=== PATIENT | female | born 1955 | race Caucasian/White ===

== ENCOUNTER → 2017-10-25 07:54 | Outpatient (CLI) | payer OTHER, SELFPAY ==
--- NOTE | 2017-10-25 | DI.MG.S_ITS ---
BILATERAL DIGITAL SCREENING MAMMOGRAM 3D/2D WITH CAD: 10/25/2017 CLINICAL: Routine screening. Comparison is made to exams dated: 07/18/2016 mammogram, 05/18/2015 mammogram, and 10/23/2013 mammogram - [facility]. The tissue of both breasts is heterogeneously dense. This may lower the sensitivity of mammography. Current study was also evaluated with a Computer Aided Detection (CAD) system. No significant masses, calcifications, or other findings are seen in either breast. There has been no significant interval change. IMPRESSION: NEGATIVE There is no mammographic evidence of malignancy. A 1 year screening mammogram is recommended. This exam was interpreted at Station ID: [id number]. NOTE: For mammograms, a report in lay terms will be sent to the patient. Approximately 15% of breast malignancies will not be visualized mammographically. In the management of a palpable breast mass, a negative mammogram must not discourage biopsy of a clinically suspicious lesion. Electronically Signed By: Syed henson/meena:10/25/2017 20:35:53 letter sent: Normal Exam ACR BI-RADS Category 1: Negative 3341F
== END ==
DX: Z12.31 Encounter for screening mammogram for malignant neoplasm of breast (principal)
CPT/HCPCS: 77063; 77067

== ENCOUNTER → 2018-11-13 16:40 | Outpatient (CLI) | payer OTHER, SELFPAY ==
--- NOTE | 2018-11-13 16:41 | DI.MG.S_ITS ---
BILATERAL DIGITAL SCREENING MAMMOGRAM 3D/2D WITH CAD: 11/13/2018 CLINICAL: Routine screening. Comparison is made to exams dated: 10/25/2017 mammogram, 07/18/2016 mammogram, and 05/18/2015 mammogram - [facility]. The tissue of both breasts is heterogeneously dense. This may lower the sensitivity of mammography. Current study was also evaluated with a Computer Aided Detection (CAD) system. There is an asymmetry in the left breast middle depth inferior region seen on the mediolateral oblique view only. There is possible architectural distortion associated with the asymmetry. No other significant masses, calcifications, or other findings are seen in either breast. IMPRESSION: INCOMPLETE: NEEDS ADDITIONAL IMAGING EVALUATION The asymmetry in the left breast is indeterminate. Additional views with possible ultrasound are recommended. This exam was interpreted at Station ID: [id number]. NOTE: For mammograms, a report in lay terms will be sent to the patient. Approximately 15% of breast malignancies will not be visualized mammographically. In the management of a palpable breast mass, a negative mammogram must not discourage biopsy of a clinically suspicious lesion. Electronically Signed By: Syed Mckeon M.D. ecl/:11/13/2018 21:42:49 letter sent: Additional Imaging Needed ACR BI-RADS Category 0: Incomplete 3340F
== END ==
DX: Z12.31 Encounter for screening mammogram for malignant neoplasm of breast (principal)
CPT/HCPCS: 77063; 77067

== ENCOUNTER → 2018-11-16 08:14 | Outpatient (CLI) | payer OTHER, SELFPAY ==
[2018-11-16 09:54] LABS: Cholesterol 212 mg/dL (140-199); HDL Cholesterol 89 mg/dL (40-60); LDL Cholesterol Calculated 112 mg/dL (<100); Triglycerides 53 mg/dL (35-150)
[2018-11-16 10:26] LABS: Cancer Antigen 125 8 U/mL (0-35)
== END ==
DX: Z00.00 Encounter for general adult medical examination without abnormal findings (principal); N85.2 Hypertrophy of uterus; Z79.890 Hormone replacement therapy
CPT/HCPCS: 36415; 80061; 86304

== ENCOUNTER → 2018-12-06 08:40 | Outpatient (CLI) | payer OTHER, SELFPAY ==
--- NOTE | 2018-12-06 08:43 | DI.MG.S_ITS ---
UNILATERAL LEFT DIGITAL DIAGNOSTIC MAMMOGRAM 3D/2D WITH ADDITIONAL VIEWS: 12/06/2018 CLINICAL: Additional evaluation requested from prior study. Comparison is made to exams dated: 11/13/2018 mammogram, 10/25/2017 mammogram, 07/18/2016 mammogram, 05/18/2015 mammogram, 10/23/2013 mammogram, and 09/06/2012 mammogram - [facility]. The tissue of left breast is heterogeneously dense. This may lower the sensitivity of mammography. Previously noted asymmetry in the left breast middle depth inferior region seen on the mediolateral oblique view only on comparison screening mammogram of 11/13/18 resolves with additional views with only benign-appeariung fibroglandular tissue identified in the area of concern on spot compression views. No architectural distortion is identified in the area of concern on spot compression and tomosynthesis views. IMPRESSION: NEGATIVE No mammographic evidence of malignancy in the imaged areas of the inferior left breast. Return to annual screening mammography schedule recommended. These results and recommendations were discussed with the patient in person at the time of the exam by Dr. Mckeon. The patient was advised to monitor her breasts and to return sooner for reevaluation if she feels anything grow or change in her breasts. This exam was interpreted at Station ID: [id number]. NOTE: For mammograms, a report in lay terms will be sent to the patient. Approximately 15% of breast malignancies will not be visualized mammographically. In the management of a palpable breast mass, a negative mammogram must not discourage biopsy of a clinically suspicious lesion. Electronically Signed By: Syed Mckeon M.D. ecl/:12/06/2018 09:30:36 letter sent: Normal Exam ACR BI-RADS Category 1: Negative 3341F
== END ==
DX: R92.8 Other abnormal and inconclusive findings on diagnostic imaging of breast (principal); N64.89 Other specified disorders of breast
CPT/HCPCS: 77065; G0279

== ENCOUNTER → 2020-06-22 16:48 | Outpatient (CLI) | payer OTHER, SELFPAY ==
--- NOTE | 2020-06-22 16:52 | DI.MG.S_ITS ---
BILATERAL DIGITAL SCREENING MAMMOGRAM 3D/2D WITH CAD: 06/22/2020 CLINICAL: Routine screening. Comparison is made to exams dated: 12/06/2018 mammogram, 11/13/2018 mammogram, 10/25/2017 mammogram, and 07/18/2016 mammogram - [facility]. The tissue of both breasts is heterogeneously dense. This may lower the sensitivity of mammography. Current study was also evaluated with a Computer Aided Detection (CAD) system. No significant masses, calcifications, or other findings are seen in either breast. There has been no significant interval change. IMPRESSION: NEGATIVE There is no mammographic evidence of malignancy. A 1 year screening mammogram is recommended. This exam was interpreted at Station ID: [id number]. NOTE: For mammograms, a report in lay terms will be sent to the patient. Approximately 15% of breast malignancies will not be visualized mammographically. In the management of a palpable breast mass, a negative mammogram must not discourage biopsy of a clinically suspicious lesion. Electronically Signed By: Adithya devlin/meena:06/23/2020 08:03:42 letter sent: Normal Exam ACR BI-RADS Category 1: Negative 3341F
== END ==
PROVIDERS: PCP Internal Medicine; Referring Provider Student in an Organized Health Care Education/Training Program; Visit Provider Student in an Organized Health Care Education/Training Program
DX: Z12.31 Encounter for screening mammogram for malignant neoplasm of breast (principal)
CPT/HCPCS: 77063; 77067

== ENCOUNTER → 2021-11-17 09:37 | Outpatient (CLI) | payer OTHER, SELFPAY | PROVIDERS: PCP Family Medicine; Referring Provider Family Medicine; Visit Provider Family Medicine | DX: Z13.820 Encounter for screening for osteoporosis (principal); Z78.0 Asymptomatic menopausal state; Z92.23 Personal history of estrogen therapy | CPT/HCPCS: 77080 ==

== ENCOUNTER → 2022-01-20 08:02 | Outpatient (CLI) | payer OTHER, SELFPAY ==
--- NOTE | 2022-01-20 08:05 | DI.RAD.S_ITS ---
PROCEDURE: XR HIP W PEL IF DONE LT 2V INDICATIONS: left hip and low back pain TECHNIQUE: AP pelvis with lateral view(s) of the left hip(s). COMPARISON: [facility], [place]NA, XR PELVIS WITH BILATERAL LATERAL HIPS, 12/09/2019, 9:12. FINDINGS: Bones: No fractures or dislocations. Pelvic ring appears intact. No suspicious bony lesions. Dfku-tb-bwwdlral hip and sacroiliac joint degeneration. Soft tissues: The visualized bowel gas pattern is normal. No suspicious soft tissue calcifications. IMPRESSION: Rzfr-qr-qjpveqku degenerative joint disease. Dictated by: Jie Guadalupe M.D. on 01/20/2022 at 11:32 Approved by: Jie Guadalupe M.D. on 01/20/2022 at 11:34
--- NOTE | 2022-01-20 08:05 | DI.RAD.S_ITS ---
PROCEDURE: XR LUMBAR SPINE 2-3V INDICATIONS: left hip and low back pain TECHNIQUE: 3 views of the lumbar spine were acquired. COMPARISON: None. FINDINGS: Bones: 5 [id number]-bkzbxkw vertebrae are present. There is normal bony alignment. No vertebral body compression fractures. No suspicious bony lesions. Mild degenerative disc at L2-L3, L4-L5 and L5-S1 and mild facet disease at L4-L5 and L5-S1. Soft tissues: Overlying bowel gas pattern is normal. No suspicious soft tissue calcifications. IMPRESSION: Mild degenerative disc and facet disease in lumbar spine. Dictated by: Jie Guadalupe M.D. on 01/20/2022 at 14:25 Approved by: Jie Guadalupe M.D. on 01/20/2022 at 14:26
[2022-01-20 08:43] LABS: Add Manual Diff / Slide Review NO; Basophils Absolute Auto 0 /uL (0-100); Basophils Percent Auto 0.4 % (0-2); Eosinophils Absolute Auto 100 /uL (0-450); Eosinophils Percent Auto 1.3 % (2-4); Hematocrit 39.8 % (36-46); Hemoglobin 13.7 g/dL (12.0-16.0); Lymphocytes Absolute Auto 3100 /uL (1100-4500); Lymphocytes Percent Auto 42.1 % (25-40); Mean Corpuscular HGB Conc 34.4 % (30-36); Mean Corpuscular Hemoglobin 31.6 PG (26-34); Mean Corpuscular Volume 91.7 fL (80-100); Monocytes Absolute Auto 700 /uL (0-900); Neutrophils Absolute Auto 3400 /uL (1500-7000); Neutrophils Percent Auto 47.2 % (50-75); Platelet Count 269 X10^3/uL (150-400); Red Blood Cell Count 4.34 X10^6/uL (4.0-5.2); Red Cell Distribution Width 12.7 % (11.6-14.8); White Blood Cell Count 7.3 X10^3/uL (4.5-11.0)
[2022-01-20 09:23] LABS: Creatinine Urine Random 298.8 mg/dL
[2022-01-20 09:24] LABS: Microalbumin Urine Random 1.5 mg/dL (0-1.6)
[2022-01-20 09:25] LABS: Alanine Aminotransferase 11 IU/L (<35); Albumin 4.1 g/dL (3.5-5.0); Albumin Globulin Ratio 1.5 (1.0-2.8); Alkaline Phosphatase 51 U/L (38-126); Aspartate Aminotransferase 25 IU/L (14-36); BUN Creatinine Ratio 16.5 (6-22); Bilirubin Total 0.6 mg/dL (0.2-1.3); Blood Urea Nitrogen 13 mg/dL (7-17); Calcium 8.8 mg/dL (8.4-10.2); Carbon Dioxide 31 mmol/L (22-32); Chloride 103 mmol/L (98-107); Cholesterol 174 mg/dL (140-199); Estimated Glomerular Filt Rate > 60 mL/min (>60); Globulin 2.7 g/dL (1.7-4.1); Glucose 95 mg/dL (80-110); HDL Cholesterol 53 mg/dL (40-60); HEMOLYSIS < 15 (0-50); LDL Cholesterol Calculated 109 mg/dL (<100); Potassium 3.8 mmol/L (3.4-5.1); Sodium 139 mmol/L (137-145); Total Protein 6.8 g/dL (6.3-8.2); Triglycerides 59 mg/dL (35-150)
[2022-01-20 09:49] LABS: TSH w/ Reflex to FT4 2.04 uIU/mL (0.47-4.68)
== END ==
LOC: LAB 08:03 → RAD 08:04
PROVIDERS: PCP Family Medicine; Referring Provider Family Medicine; Visit Provider Family Medicine
DX: M16.0 Bilateral primary osteoarthritis of hip (principal); M46.1 Sacroiliitis, not elsewhere classified; M51.16 Intervertebral disc disorders with radiculopathy, lumbar region; M51.17 Intervertebral disc disorders with radiculopathy, lumbosacral region; E78.00 Pure hypercholesterolemia, unspecified; R00.0 Tachycardia, unspecified; Z12.11 Encounter for screening for malignant neoplasm of colon
CPT/HCPCS: 36415; 72100; 73502; 80053; 80061; 82043; 82570; 84443; 85025

== ENCOUNTER → 2022-01-20 09:09 | Outpatient (CLI) | payer OTHER, SELFPAY ==
--- NOTE | 2022-01-20 | DI.MG.S_ITS ---
BILATERAL DIGITAL SCREENING MAMMOGRAM 3D/2D WITH CAD: 01/20/2022 CLINICAL: Routine screening. Family history of breast cancer. Comparison is made to exams dated: 06/22/2020 mammogram, 11/13/2018 mammogram, and 10/25/2017 mammogram - [facility]. Both breasts are heterogeneously dense, which may obscure small masses (category c / 51-75% glandular tissue). Current study was also evaluated with a Computer Aided Detection (CAD) system. No significant masses, calcifications, or other findings are seen in either breast. There has been no significant interval change. IMPRESSION: NEGATIVE There is no mammographic evidence of malignancy. A 1 year screening mammogram is recommended. This exam was interpreted at Station ID: [id number]. NOTE: For mammograms, a report in lay terms will be sent to the patient. Approximately 15% of breast malignancies will not be visualized mammographically. In the management of a palpable breast mass, a negative mammogram must not discourage biopsy of a clinically suspicious lesion. Electronically Signed By: Meghan esteves/meena:01/20/2022 12:00:33 letter sent: Normal Exam ACR BI-RADS Category 1: Negative 3341F
== END ==
PROVIDERS: PCP Family Medicine; Referring Provider Family Medicine; Visit Provider Family Medicine
DX: Z12.31 Encounter for screening mammogram for malignant neoplasm of breast (principal); Z80.3 Family history of malignant neoplasm of breast; Z12.11 Encounter for screening for malignant neoplasm of colon; M16.0 Bilateral primary osteoarthritis of hip; M46.1 Sacroiliitis, not elsewhere classified; M51.16 Intervertebral disc disorders with radiculopathy, lumbar region; M51.17 Intervertebral disc disorders with radiculopathy, lumbosacral region; E78.00 Pure hypercholesterolemia, unspecified; R00.0 Tachycardia, unspecified
CPT/HCPCS: 36415; 72100; 73502; 77063; 77067; 80053; 80061; 82043; 82570; 84443; 85025

== ENCOUNTER → 2023-08-04 09:42 | Outpatient (CLI) | payer OTHER, SELFPAY ==
--- NOTE | 2023-08-04 09:44 | DI.MG.S_ITS ---
BILATERAL DIGITAL SCREENING MAMMOGRAM 3D/2D WITH CAD: 08/04/2023 CLINICAL: Routine screening. Family history of breast cancer. Comparison is made to exams dated: 01/20/2022 mammogram, 06/22/2020 mammogram, and 11/13/2018 mammogram - [facility]. Both breasts are heterogeneously dense, which may obscure small masses (category c / 51-75% glandular tissue). Current study was also evaluated with a Computer Aided Detection (CAD) system. There is a possible new 0.7 cm oval focal asymmetry in the left breast central to the nipple middle depth. No other significant masses, calcifications, or other findings are seen in either breast. IMPRESSION: INCOMPLETE: NEEDS ADDITIONAL IMAGING EVALUATION The possible new 0.7 cm oval focal asymmetry in the left breast is indeterminate. Additional views with possible ultrasound are recommended. Based on the Tyrer Cuzick model (a risk assessment model) the patient's lifetime risk is 16.9% and her 10 year risk is 9.1%. According to the ACR, ACS, and NCCN guidelines, an annual breast MRI exam along with mammogram is recommended if the patient's lifetime risk is 20% or greater. This exam was interpreted at Station ID: [id number]. NOTE: For mammograms, a report in lay terms will be sent to the patient. Approximately 15% of breast malignancies will not be visualized mammographically. In the management of a palpable breast mass, a negative mammogram must not discourage biopsy of a clinically suspicious lesion. Electronically Signed By: Adithya devlin/meena:08/06/2023 07:50:02 letter sent: Additional Imaging Needed ACR BI-RADS Category 0: Incomplete 3340F
== END ==
PROVIDERS: PCP Family Medicine; Referring Provider Family Medicine; Visit Provider Family Medicine
DX: Z12.31 Encounter for screening mammogram for malignant neoplasm of breast (principal); Z80.3 Family history of malignant neoplasm of breast; R92.333 Mammographic heterogeneous density, bilateral breasts
CPT/HCPCS: 77063; 77067

== ENCOUNTER → 2023-08-24 08:00 | Outpatient (CLI) | payer OTHER, SELFPAY ==
--- NOTE | 2023-08-24 08:01 | DI.MG.S_ITS ---
UNILATERAL LEFT DIGITAL DIAGNOSTIC MAMMOGRAM 3D/2D WITH ADDITIONAL VIEWS: 08/24/2023 CLINICAL: Additional evaluation requested from prior study. Comparison is made to exams dated: 08/04/2023 mammogram, 06/22/2020 mammogram, and 01/20/2022 mammogram - [facility]. The left breast is heterogeneously dense, which may obscure small masses (category c / 51-75% glandular tissue). There is a 0.7 cm oval focal asymmetry in the left breast at 1 o'clock anterior depth. This is seen in additional views. No other significant masses or calcifications are seen in the breast. IMPRESSION: INCOMPLETE: NEEDS ADDITIONAL IMAGING EVALUATION The 0.7 cm oval focal asymmetry in the left breast is indeterminate. An ultrasound is recommended. Based on the Tyrer Cuzick model (a risk assessment model) the patient's lifetime risk is 16.9% and her 10 year risk is 9.1%. According to the ACR, ACS, and NCCN guidelines, an annual breast MRI exam along with mammogram is recommended if the patient's lifetime risk is 20% or greater. This exam was interpreted at Station ID: [id number]. NOTE: For mammograms, a report in lay terms will be sent to the patient. Approximately 15% of breast malignancies will not be visualized mammographically. In the management of a palpable breast mass, a negative mammogram must not discourage biopsy of a clinically suspicious lesion. Electronically Signed By: Shankar redd/meena:08/24/2023 10:00:05 ACR BI-RADS Category 0: Incomplete 3340F
--- NOTE | 2023-08-24 08:01 | DI.US.S_ITS ---
LIMITED ULTRASOUND OF LEFT BREAST: 08/24/2023 CLINICAL: Patient returns today to evaluate a focal asymmetry in the left breast. Comparison is made to exams dated: 08/24/2023 mammogram, 08/04/2023 mammogram, 01/20/2022 mammogram, 06/22/2020 mammogram, 12/06/2018 mammogram, and 11/13/2018 mammogram - [facility]. Color flow and real-time ultrasound of the left breast 1 o'clock, 11 o'clock, and retroareolar regions were performed. Edwards scale images of the real-time examination were reviewed. There is a benign 0.7 cm x 0.8 cm x 0.3 cm micro cyst in the left breast at 1 o'clock middle depth. Other simple benign cysts are seen within 3cm of the nipple on ultrasound, incidental. IMPRESSION: BENIGN There is no sonographic evidence of malignancy. The 0.7 cm x 0.8 cm x 0.3 cm micro cyst in the left breast is benign. Return to annual mammogram screening schedule is recommended. This exam was interpreted at Station ID: [id number]. Electronically Signed By: Shankar Raines M.D. lc/:08/24/2023 10:01:39 letter sent: Normal Exam Ultrasound BI-RADS: 2 Benign
== END ==
LOC: MAMMO 08:01
PROVIDERS: PCP Family Medicine; Referring Provider Family Medicine; Visit Provider Family Medicine
DX: R92.8 Other abnormal and inconclusive findings on diagnostic imaging of breast (principal); R92.332 Mammographic heterogeneous density, left breast; N60.02 Solitary cyst of left breast
CPT/HCPCS: 76642; 77065; G0279

== ENCOUNTER → 2023-09-01 10:09 | Outpatient (CLI) | payer OTHER, SELFPAY ==
--- NOTE | 2023-09-01 10:10 | DI.RAD.S_ITS ---
PROCEDURE: XR HIP W PEL IF DONE LT 2V INDICATIONS: left hip pain, chronic TECHNIQUE: AP pelvis with lateral view(s) of the left hip(s). COMPARISON: [facility], , XR HIP W PEL IF DONE LT 2V, 01/20/2022, 8:16. FINDINGS: Bones: No fractures or dislocations. Pelvic ring appears intact. No suspicious bony lesions. Moderate bilateral degenerative hip joint space narrowing. Periarticular osteophytes are present. No erosions. Soft tissues: The visualized bowel gas pattern is normal. No suspicious soft tissue calcifications. IMPRESSION: Bilateral hip arthritic change, stable. Dictated by: Alisia Williamson M.D. on 09/02/2023 at 12:40 Approved by: Alisia Williamson M.D. on 09/02/2023 at 12:40
== END ==
PROVIDERS: PCP Family Medicine; Referring Provider Family Medicine; Visit Provider Family Medicine
DX: M25.552 Pain in left hip (principal)
CPT/HCPCS: 73502